=== PATIENT | female | born 1945 | race Caucasian/White ===

== ENCOUNTER 2016-12-05 15:10 | Emergency (ER) | payer MEDICARE ==
[~2016-12-05] VITALS: Ht 162.6 cm; Wt 70.3 kg
[2016-12-05 15:26] VITALS: BP 114/60
== END 2016-12-05 20:12 | disposition left against medical advice (07) ==
LOC: ER 15:17
DX: M79.641 Pain in right hand (principal); G89.29 Other chronic pain; G56.01 Carpal tunnel syndrome, right upper limb; M19.90 Unspecified osteoarthritis, unspecified site; Z53.21 Procedure and treatment not carried out due to patient leaving prior to being seen by health care provider